=== PATIENT | male | born 1955 | race Caucasian/White ===

== ENCOUNTER 2019-05-12 01:45 | Inpatient (IN) | payer OTHER ==
[2019-05-12] MEDS: SOD CHLORIDE 0.9% 1,000 ML IV ×2 (03:30→15:51)
[2019-05-12] MEDS ORDERED: morphine 2 MG INJ IV (03:30)
[2019-05-12] MEDS ORDERED: ONDANSETRON 4 MG INJ IV ×2 (03:30→08:30)
[2019-05-12] MEDS ORDERED: ACETAMINOPHEN 325 MG TAB PO ×2 (03:30→08:30)
[2019-05-12 06:20] LABS: ADD MAN DIFF? NO
[2019-05-12 06:23] LABS: BASOPHILS % 0.4 % (0.0-2.0); EOSINOPHILS # 0.1 10^3/ul (0.0-0.5); EOSINOPHILS % 1.4 % (0.0-7.0); HEMATOCRIT 44.3 % (42.0-52.0); HEMOGLOBIN 14.1 g/dl (14.0-18.0); LYMPHOCYTES # 1.4 10^3/ul (0.8-2.9); MEAN CORPUSCULAR HGB CONC 31.8 g/dl (32.0-37.0); MEAN CORPUSCULAR VOLUME 94.3 fl (82.0-101.0); MONOCYTE # 0.4 10^3/ul (0.3-0.9); MONOCYTES % 7.4 % (0.0-11.0); NEUTROPHIL # 3.6 10^3/ul (1.6-7.5); NEUTROPHILS % 65.6 % (39.0-77.0); PLATELET COUNT 156 10^3/UL (140-415); RED CELL DISTRIBUTION WIDTH 14.1 % (11.5-14.5)
[2019-05-12 06:23] LABS: WHITE BLOOD COUNT 5.5 10^3/ul (4.8-10.8)
[2019-05-12 06:42] LABS: INR 0.99; PROTIME 13.2 Sec (11.9-14.9)
[2019-05-12 06:43] LABS: PARTIAL THROMBOPLASTIN TIME 28.6 Sec (23.0-35.0)
[2019-05-12 06:59] LABS: HEMOGLOBIN A1C 5.4 % (0-5.9)
[2019-05-12 07:06] LABS: ANION GAP 4 (5-13); BLOOD UREA NITROGEN 19 mg/dl (7-20); CALCIUM 8.6 mg/dl (8.4-10.2); CARBON DIOXIDE 28 mmol/L (21-31); CHLORIDE 108 mmol/L (97-110); CREATININE 0.66 mg/dl (0.61-1.24); Estimated GFR > 60 mL/min (>60); GLUCOSE 100 mg/dl (70-220); POTASSIUM 3.8 mmol/L (3.5-5.1); SODIUM 140 mmol/L (135-144)
[2019-05-12] MEDS ORDERED: DOCUSATE SODIUM 100 MG CAP PO (08:30)
[2019-05-12] MEDS ORDERED: BISACODYL (EC) 5 MG TAB PO (08:30)
[2019-05-12] MEDS ORDERED: NACL 0.9% 3 ML SYG IV (08:30)
[2019-05-12] MEDS: NEOMYC/POLYMYX/BACIT 30 GM OINT TOP ×3 (10:06→20:39)
[2019-05-12] MEDS: HYDROCODONE/APAP (5/325) TAB PO (10:06)
[2019-05-13] MEDS: SOD CHLORIDE 0.9% 1,000 ML IV ×2 (05:03→22:27)
[2019-05-13] MEDS: NEOMYC/POLYMYX/BACIT 30 GM OINT TOP ×3 (08:47→22:27)
[2019-05-14] MEDS: SOD CHLORIDE 0.9% 1,000 ML IV ×2 (08:46→10:50)
[2019-05-14] MEDS: NEOMYC/POLYMYX/BACIT 30 GM OINT TOP ×2 (08:47→12:34)
[2019-05-14] MEDS: HEPARIN 5,000 UNIT/1 ML VIAL SC (09:00)
[2019-05-14] MEDS ORDERED: LORAZEPAM 2 MG INJ IV (13:30)
== END 2019-05-14 16:10 | disposition left against medical advice (07) | DRG 563 ==
LOC: PP2 01:45
DX: S82.042A Displaced comminuted fracture of left patella, initial encounter for closed fracture (principal); V18.2XXA Unspecified pedal cyclist injured in noncollision transport accident in nontraffic accident, initial encounter; Y93.55 Activity, bike riding; Y92.89 Other specified places as the place of occurrence of the external cause; Y99.8 Other external cause status; F14.10 Cocaine abuse, uncomplicated; F15.10 Other stimulant abuse, uncomplicated; F12.10 Cannabis abuse, uncomplicated; F17.200 Nicotine dependence, unspecified, uncomplicated
CPT/HCPCS: 71045; 73560; 73700; 80048; 83036; 85025; 85610; 85730; 87081; 93005